=== PATIENT | male | born 1935 | race Caucasian/White ===

== ENCOUNTER 2016-04-29 11:50 | Day surgery (SDC) | payer OTHER ==
[~2016-04-29] VITALS: Ht 170.2 cm; Wt 68.2 kg
[~2016-04-29 11:50] MED LIST: FERROUS SULFAT325 MG PO; PANTOPRAZOLE SO40 MG PO; TUMS500 MG PO; TYLENOL EXTRA500 MG PO
[2016-04-29 12:52] VITALS: BP 146/65
[2016-04-29] MEDS ORDERED: NORCO 5/3251 TABLET PO (14:52)
[2016-04-29] MEDS ORDERED: COLACE100 MG PO (14:52)
[2016-04-29 16:55] VITALS: BP 148/65
[2016-04-29 17:55] VITALS: BP 133/61
== END 2016-04-29 18:10 | disposition home or self-care (01) ==
LOC: SDC 11:50
PROC: 0YU60JZ Supplement Left Inguinal Region with Synthetic Substitute, Open Approach (ICD-10-PCS; principal; 2016-04-29)
DX: K40.90 Unilateral inguinal hernia, without obstruction or gangrene, not specified as recurrent (principal); Z87.11 Personal history of peptic ulcer disease; Z87.19 Personal history of other diseases of the digestive system; F17.210 Nicotine dependence, cigarettes, uncomplicated; Z82.3 Family history of stroke; Z82.49 Family history of ischemic heart disease and other diseases of the circulatory system
CPT/HCPCS: C1781; J0690; J0696; J1170; J2405; J3010; J7050